=== PATIENT | female | born 1965 | race Caucasian/White ===

== ENCOUNTER 2021-04-13 12:58 | Emergency (ER) | payer BC, OTHER ==
--- NOTE | 2021-04-13 14:39 | CT ---
Abdomen Pelvis wo Cont CLINICAL HISTORY: Abdominal pain, spasms, constipation COMPARISON: None. TECHNIQUE: Axial tomographic images are obtained from the dome of the diaphragm to the pubic symphysis without IV contrast enhancement. No oral contrast was used. The dosage reduction and iterative reconstruction techniques employed. FINDINGS: The lung bases are free of infiltrate. There are some streaky scarring and/or atelectasis in both bases.. The liver is free of mass or biliary dilatation. The gallbladder has a normal appearance. The spleen has normal size and shape. The pancreas is free of mass or inflammatory change. There is an IVC filter in place at the level of the renal veins. The adrenal glands appear normal bilaterally. The kidneys show no stones or hydronephrosis. The ureters have a normal course and caliber. The bladder has a normal contour. Uterus has a normal contour. No adnexal masses are seen. There is some motion artifact in the lower pelvic scans The aorta has a normal course and caliber. There is no suspicious retroperitoneal adenopathy. Abdominal pelvic fat planes and low pelvic side spicer are well demarcated. Small intestinal configuration is nonacute. There is moderate retained stool throughout a very redundant colon.. The appendix has normal contour There is been previous thoracolumbar fixation. There compression fractures at T9 and T11 IMPRESSION: Moderate retained stool and a very redundant: Nonacute intestinal gas pattern IVC filter in place
--- NOTE | 2021-04-13 14:58 | EDM.PDOC ---
ED HPI GENERAL MEDICAL PROBLEM - General Chief Complaint: Gastrointestinal Problem Stated Complaint: BOWEL ISSUE/NERVE LOSS Time Seen by Provider: 04/13/21 13:40 Source of Information: Reports: Patient, Family History Limitations: Reports: No Limitations - History of Present Illness INITIAL COMMENTS - FREE TEXT/NARRATIVE: 56-year-old female who sustained a serious back injury 3 months ago, has now partial paralysis of the lower extremities from the waist down. She claims she has not had a bowel movement for 10 days, her is attempting to decompact her digitally, he is already cathing her bladder on a regular basis. She has been taking MiraLAX and Dulcolax without significant results, has decreased her baclofen from 3 doses to 2 doses concerned that it might be causing constipation. No fevers or chills. Onset: Gradual Duration: Day(s): (10 days) Location: Reports: Abdomen (Some increased spasms of her bowel over the past several days) Associated Symptoms: Denies: Fever/Chills, Headaches, Loss of Appetite, Nausea/Vomiting, Shortness of Breath, Weakness Lower Abdomen Pain Score (Numeric/FACES): 8 - Related Data Allergies Allergy/AdvReac Type Severity Reaction Status Date / Time No Known Allergies Allergy Verified 04/13/21 13:33 Home Meds: Home Meds Apixaban [Eliquis] 5 mg PO BID 04/13/21 [History] Baclofen 10 mg PO BID 04/13/21 [History] Pregabalin [Lyrica] 100 mg PO TID 04/13/21 [History] Past Medical History Musculoskeletal History: Reports: Other (See Below) Other Musculoskeletal History: Broken back with rods. Metal plate in neck. Neurological History: Reports: Other (See Below) Other Neuro History: paraplegic Social & Family History - Tobacco Use Tobacco Use Status *Q: Never Tobacco User - Caffeine Use Caffeine Use: Reports: Coffee - Recreational Drug Use Recreational Drug Use: No ED ROS GENERAL - Review of Systems Review Of Systems: See Below Constitutional: Denies: Fever, Chills, Malaise HEENT: Denies: Vision Change Respiratory: Denies: Shortness of Breath Cardiovascular: Denies: Chest Pain GI/Abdominal: Reports: Abdominal Pain, Constipation. Denies: Nausea, Vomiting : Reports: Other ( provides a straight catheter to the bladder on a regular basis) Skin: Reports: No Symptoms Neurological: Reports: Other (Lower extremity weakness and partial paralysis is stable) Psychiatric: Reports: No Symptoms ED EXAM, GI/ABD - Physical Exam Exam: See Below Exam Limited By: No Limitations General Appearance: Alert, No Apparent Distress Eyes: Bilateral: Normal Appearance Head: Atraumatic Respiratory/Chest: No Respiratory Distress, Lungs Clear Cardiovascular: Regular Rate, Rhythm GI/Abdominal Exam: Soft, Tender (Mild tenderness to palpation across the lower abdomen but no focal pain. Bowel sounds are normal.) Rectal (Female) Exam: Normal Exam (Rectal exam is completely empty, there is no inflammation of the perirectal area, no masses) Extremities: No: Pedal Edema Neurological: Alert, Oriented Psychiatric: Normal Affect, Normal Mood Skin Exam: Warm, Dry Course - Vital Signs Last Recorded V/S: Last Vital Signs Temp 97.6 F 04/13/21 13:28 Pulse 81 04/13/21 13:28 Resp 18 04/13/21 13:28 BP 126/72 04/13/21 13:28 Pulse Ox 96 04/13/21 13:28 - Re-Assessments/Exams Free Text/Narrative Re-Assessment/Exam: 04/13/21 17:[address] of the abdomen and pelvis was done without contrast to assess the amount of constipation, to rule out obstruction or volvulus. She has a very redundant colon but no sign of obstruction. She actually has only moderate diffuse stool present. She was offered an enema but I do think if she just continues the course her bowels will move fairly soon. Departure - Departure Time of Disposition: 15:04 Disposition: Home, Self-Care 01 Clinical Impression: Constipation by delayed colonic transit - Discharge Information Instructions: Constipation, Adult Referrals: Vlad Mack MD [Primary Care Provider] - Forms: ED Department Discharge Care Plan Goals: Continue with MiraLAX, Dulcolax, and drink plenty of water. Return to your regular dose of medications, and return if worsening over the next several days. Sepsis Event Note (ED) - Evaluation Sepsis Screening Result: No Definite Risk - Focused Exam Vital Signs: Vital Signs Temp Pulse Resp BP Pulse Ox 04/13/21 13:28 97.6 F 81 18 126/72 96 04/13/21 13:26 97.6 F 81 18 126/72 96
== END 2021-04-13 15:10 | disposition home or self-care (01) ==
LOC: JP.ED 12:58
DX: K59.01 Slow transit constipation (principal); Z79.01 Long term (current) use of anticoagulants
CPT/HCPCS: 74176; 74176-26; 99283-25

== ENCOUNTER 2021-05-08 12:24 | Emergency (ER) | payer OTHER ==
--- NOTE | 2021-05-08 12:31 | EDM.PDOC ---
ED HPI GENERAL MEDICAL PROBLEM - General Stated Complaint: possible uti Time Seen by Provider: 05/08/21 13:20 Source of Information: Reports: Patient, Family ( (home caregiver)), RN History Limitations: Reports: No Limitations - History of Present Illness INITIAL COMMENTS - FREE TEXT/NARRATIVE: Migue is a 56 year old female whom uses a wheelchair for mobility presents with concerns regarding possible UTI. Patient requested Urine Catheter sample with Urine Culture which is ordered while patient is in triage waiting area to assist with ER evaluation and treatment. Migue has a cage around her T10 and rods in lower back resulting in paraplegia bilateral lower legs, 3 months ago. Migue has had increased difficulty sleeping over the last 2-3 days due to increased bilateral lower leg spasms and back spasms which are painful. Migue has been working with [facility] with pain and muscle spasms, recent change in medications from Lyrica to gabapentin. Patient is on Baclofen with minimal improvement. Migue is not sleeping well therefore not managing pain or current life situation. Migue is tearful regarding situation and inability to have legs shaved. is very supportive with routine straight catheterizations, assisting with bowel program with recent constipation (no BM x 10 days) then added Miralax to routine resulting in 2 stooling accidents, one at Physical Therapy appointments. Migue reports strong odor to urine and increased in leg spasms which increases her concern for UTI. Migue denies fever, chills sweats, cough or URI symptoms. Chairmonet report decreased appetite, which she thought was due to life stressors but now may be due to infection. - Related Data Allergies Allergy/AdvReac Type Severity Reaction Status Date / Time No Known Allergies Allergy Verified 05/08/21 13:52 Home Meds: Home Meds Apixaban [Eliquis] 5 mg PO BID 04/13/21 [History] Baclofen 10 mg PO BID 04/13/21 [History] Pregabalin [Lyrica] 100 mg PO TID 04/13/21 [History] Amoxicillin/Potassium Clav [Augmentin 875-125 Tablet] 1 each PO BID 10 Days #20 tablet 05/08/21 [Rx] Gabapentin [Neurontin] 300 mg PO TID 05/08/21 [History] methocarbamoL [Methocarbamol] 500 - 1,000 mg PO TID 10 Days #30 tablet 05/08/21 [Rx] Past Medical History Musculoskeletal History: Reports: Other (See Below) Other Musculoskeletal History: Broken back with rods. Metal plate in neck. Neurological History: Reports: Other (See Below) Other Neuro History: paraplegic Social & Family History - Caffeine Use Caffeine Use: Reports: Coffee ED ROS GENERAL - Review of Systems Review Of Systems: Comprehensive ROS is negative, except as noted in HPI. ED EXAM, RENAL/ - Physical Exam Exam: See Below Exam Limited By: Physical Impairment (Parapelgic) General Appearance: Alert, WD/WN, Moderate Distress (muscle spasms (intermittent) obviously painful. ) Eye Exam: Bilateral Eye: Normal Inspection Ears: Hearing Grossly Normal Nose: Normal Inspection Throat/Mouth: Normal Inspection, Normal Voice, No Airway Compromise Neck: Normal Inspection, Full Range of Motion Respiratory/Chest: No Respiratory Distress, Lungs Clear, Normal Breath Sounds Cardiovascular: Normal Peripheral Pulses, Regular Rate, Rhythm GI/Abdominal: Other (increased sensitity skin lower abdomen since back injury/surgeries. ) (Female) Exam: Normal External Exam. No: Vaginal Lesions Rectal (Female) Exam: Deferred Back Exam: Muscle Spasm Extremities: Normal Range of Motion (bilateral arms ), Limited Range of Motion (and use of bilateral lower legs) Neurological: Alert, Oriented, CN II-XII Intact, Normal Cognition, Abnormal Gait , Sensory/Motor Deficit. No: Normal Reflexes, Abnormal Reflexes Psychiatric: Anxious, Tearful Skin Exam: Warm, Dry, Intact, Normal Color Course - Vital Signs Last Recorded V/S: Last Vital Signs Temp 36.4 C 05/08/21 13:51 Pulse 79 05/08/21 13:51 Resp 16 05/08/21 13:51 BP 148/68 H 05/08/21 13:51 Pulse Ox 98 05/08/21 13:51 - Orders/Labs/Meds Orders: Active Orders 24 hr Category Date Time Status CULTURE URINE [RM] Stat Lab 05/08/21 13:32 Received Labs: Laboratory Tests 05/08/21 05/08/21 05/08/21 Range/Units 13:31 13:51 13:51 WBC 7.0 (4.5-11.0) K/uL RBC 4.94 (3.30-5.50) M/uL Hgb 13.6 (12.0-15.0) g/dL Hct 42.1 (36.0-48.0) % MCV 85 (80-98) fL MCH 28 (27-31) pg MCHC 32 (32-36) % Plt Count 257 (150-400) K/uL Neut % (Auto) 71.1 H (36-66) % Lymph % (Auto) 21.4 L (24-44) % [place] % (Auto) 6.8 H (2-6) % Eos % (Auto) 0.4 L (2-4) % Baso % (Auto) 0.3 (0-1) % Sodium 142 (140-148) mmol/L Potassium 4.3 (3.6-5.2) mmol/L Chloride 105 (100-108) mmol/L Carbon Dioxide 27 (21-32) mmol/L Anion Gap 9.6 (5.0-14.0) mmol/L BUN 13 (7-18) mg/dL Creatinine 0.9 (0.6-1.0) mg/dL Est Cr Clr Drug Dosing 69.57 mL/min Estimated GFR (MDRD) > 60 (>60) Glucose 93 (74-106) mg/dL Calcium 8.9 (8.5-10.1) mg/dL Magnesium 2.0 (1.8-2.4) mg/dL Total Bilirubin 0.2 (0.2-1.0) mg/dL AST 15 (15-37) U/L ALT 23 (12-78) U/L Alkaline Phosphatase 104 (46-116) U/L Total Protein 6.3 L (6.4-8.2) g/dL Albumin 3.1 L (3.4-5.0) g/dL Globulin 3.2 (2.3-3.5) g/dL Albumin/Globulin Ratio 1.0 L (1.2-2.2) Urine Color Yellow (YELLOW) Urine Appearance Cloudy A (CLEAR) Urine pH 7.0 (5.0-8.0) Ur Specific [place] 1.020 (1.008-1.030) Urine Protein Negative (NEGATIVE) mg/dL Urine Glucose (UA) Negative (NEGATIVE) mg/dL Urine Ketones Negative (NEGATIVE) mg/dL Urine Occult Blood Small H (NEGATIVE) Urine Nitrite Positive H (NEGATIVE) Urine Bilirubin Negative (NEGATIVE) Urine Urobilinogen 0.2 (0.2-1.0) EU/dL Ur Leukocyte Esterase Moderate H (NEGATIVE) Urine RBC 10-20 H (0-5) Urine WBC 50-75 H (0-5) Ur Epithelial Cells Rare Amorphous Sediment Not seen Urine Bacteria Many Urine Mucus Not seen Meds: Medications Discontinued Medications Generic Name Dose Route Start Last Admin Trade Name Freq PRN Reason Stop Dose Admin Amoxicillin/Clavulanate Potassium 1 tab 05/08/21 15:07 Amoxicillin/Clavulanate K 875-125 Mg Tab PO 05/08/21 15:08 ONETIME ONE Ceftriaxone Sodium 2 gm/ 0 gm 05/08/21 14:30 05/08/21 14:39 Lidocaine HCl 4.2 ml IM 05/08/21 14:31 2 inj ONETIME ONE Administration Methocarbamol 1,000 mg 05/08/21 13:43 05/08/21 13:54 Methocarbamol 500 Mg Tab PO 05/08/21 13:44 1,000 mg ONETIME ONE Administration Ondansetron HCl 4 mg 05/08/21 13:43 05/08/21 13:55 Ondansetron 4 Mg Tab.Dis PO 05/08/21 13:44 4 mg ONETIME ONE Administration - Re-Assessments/Exams Free Text/Narrative Re-Assessment/Exam: Updated regarding WBC with shift in differential concerning for bacterial infection. UA shows significant UTI concerns. UC orders and pending. Rocephin 2GM IM given for UTI infection to prevent progression over the next 24hours. LFTs WNL, Renal Function WNL and Electrolytes are normal. Recommended additional as needed medication for muscle spasms as needed at night (methocarbamol/Robaxin) as needed for painful muscle cramps. If restless legs due to improve with progressive gabapentin dosing (second generation gabapentin) approved for restless legs may be considered. Local pharmacy was called regarding previous Antibiotic for UTI noting Bactrim given in the last 6-12 months. Opted for treatment with cephalosporin vs Augmentin at this time due to h/o floxacin resistance to Ecoli. Discussed risk of urinary bladder colonization with routine catheterizations and treatment is not aways indicated if urine is strong smelling. Treatment based on symptoms in the future. Migue has symptoms to support treatment for UTI today. Migue reports up to 3 UTIs in the last 6 months, to be reviewed by PCP to consider low dose antibiotic for prevention of UTI in the future. 05/08/21 14:45 Up to Date and discussion with ER MD regarding antibiotic choice due to resistance and Augmentin was recommended. 05/08/21 15:0 Departure - Departure Time of Disposition: 15:16 Disposition: Home, Self-Care 01 Clinical Impression: UTI, Urinary tract infectious disease, Complicated urinary tract infection, Paraplegia, Intractable muscle spasm - Discharge Information Prescriptions: Amoxicillin/Potassium Clav [Augmentin 875-125 Tablet] 1 each PO BID 10 Days #20 tablet methocarbamoL [Methocarbamol] 500 - 1,000 mg PO TID 10 Days #30 tablet Instructions: Urinary Tract Infection, Adult, Clean Intermittent Catheterization, Female Referrals: Chong Calle MD [Primary Care Provider] - Forms: ED Department Discharge Additional Instructions: 1. Increase fluid intake. 2. Continue current medications as prescribed. 3. Augmentin 875mg every am and pm x 10 days for complicated UTI. 4. Methocarbamol (Robaxin) 500-1000mg every 8 hrs as needed for painful muscle spasms. PCP may consider continuing depending on response. Alternative treatment for restless legs to be considered. Quinine (tonic water) Second generation Gabapentin. 4. UC ordered and pending at time of Er visit to be reviewed with PCP to ensure appropriate antibiotic treatment chosen with increase risk fo resistance organism. 5. May consider UTI antibiotic for prevention of infection if repetitive infections concerns. 6. Contact PCP and Spine Injury clinician regarding continued work to manage spasms and pain in addition to improved support for activates of daily living, bowel program and in home assistance. Sepsis Event Note (ED) - Focused Exam Vital Signs: Vital Signs Temp Pulse Resp BP Pulse Ox 05/08/21 13:51 36.4 C 79 16 148/68 H 98 05/08/21 13:20 36.4 C 79 16 148/68 H 98 - My Orders Last 24 Hours: My Active Orders 05/08/21 13:32 CULTURE URINE [RM] Stat - Assessment/Plan Last 24 Hours: My Active Orders 05/08/21 13:32 CULTURE URINE [RM] Stat
[2021-05-08] MEDS ORDERED: Methocarbamol 500 MG Tab PO ONE (13:43)
[2021-05-08] MEDS ORDERED: Ondansetron 4 MG Tab.DIS PO ONE (13:43)
[2021-05-08] MEDS ORDERED: cefTRIAXone 2 GM, Lidocaine 1% 4.2 ML IM ONE ×4 (14:10→14:30)
[2021-05-08] MEDS ORDERED: Amoxicillin/Clavulanate K 875-125 MG Tab PO ONE (15:07)
== END 2021-05-08 15:37 | disposition home or self-care (01) ==
LOC: JP.ED 12:24
DX: N39.0 Urinary tract infection, site not specified (principal); G82.20 Paraplegia, unspecified; M62.838 Other muscle spasm; M62.830 Muscle spasm of back; Z79.01 Long term (current) use of anticoagulants
CPT/HCPCS: 36415; 80053; 81001; 83735; 85025; 87086; 87088; 87186; 96372; 99284; A9270; J0696

== ENCOUNTER 2023-05-13 16:04 | Emergency (ER) | payer MEDICAID ==
[2023-05-13 17:21] LABS: APPEARANCE,URINE TURBID (CLEAR); BILIRUBIN,URINE NEGATIVE (NEGATIVE); COLOR,URINE YELLOW (YELLOW); GLUCOSE,URINE NEGATIVE (NEGATIVE); KETONES,URINE NEGATIVE (NEGATIVE); LEUKOCYTE ESTERASE,URINE MODERATE (NEGATIVE); NITRITE,URINE POSITIVE (NEGATIVE); OCCULT BLOOD,URINE TRACE-INTACT (NEGATIVE); PH,URINE 7.5 (5.0-8.0); PROTEIN,URINE 30 mg/dL (NEGATIVE)
[2023-05-13 17:26] LABS: AMORPHOUS SEDIMENT,URINE MODERATE; BACTERIA,URINE MANY; EPITHELIAL CELLS,URINE FEW; MUCUS,URINE NOT SEEN; RBC,URINE 0-5 (0-5); WBC,URINE PACKED (0-5)
[2023-05-13] MEDS ORDERED: Sulfamethoxazole/Trimethoprim 200-40 MG/5 ML Susp 20 ML Cup PO ONE (17:26)
== END 2023-05-13 17:45 | disposition home or self-care (01) ==
LOC: JP.ED 16:04
DX: N39.0 Urinary tract infection, site not specified (principal); R33.9 Retention of urine, unspecified
CPT/HCPCS: 81001; 87086; 87088; 87186; 99283

== ENCOUNTER 2024-04-30 14:47 | Emergency (ER) | payer MEDICARE, BC ==
[2024-04-30] MEDS ORDERED: Naloxone 0.4 MG/ML SDV IVPUSH PRN (15:47)
[2024-04-30 15:58] LABS: BASE EXCESS VENOUS 0.4 mm/L; BASOPHILS PERCENT AUTO 0.2 % (0.1-1.3); BICARBONATE,VENOUS 25.1 mmol/L; EOSINOPHILS PERCENT AUTO 0.2 % (0.0-5.4); HEMATOCRIT 42.4 % (34.3-46.0); HEMOGLOBIN 14.5 g/dL (11.2-15.5); IMMATURE GRAN PERCENT AUTO 0.3 % (0.0-0.7); LYMPHOCYTES ABSOLUTE AUTO 0.92 K/uL (0.8-3.3); LYMPHOCYTES PERCENT AUTO 15.5 % (11.4-47.7); MEAN CORPUSCULAR HEMOGLOBIN 30.7 pg (31.6-35.5); MEAN CORPUSCULAR HGB CONC 34.2 g/dL (31.6-35.5); MEAN CORPUSCULAR VOLUME 89.8 fL (81.4-99.0); METHEMOGLOBIN 0.8 %; MONOCYTES ABSOLUTE AUTO 0.25 K/uL (0.20-0.90); MONOCYTES PERCENT AUTO 4.2 % (3.3-12.6); NEUTROPHILS ABSOLUTE AUTO 4.72 K/uL (1.0-7.6); NEUTROPHILS PERCENT AUTO 79.6 % (40.0-78.1); O2 SATURATION VENOUS 51.8; OXYHEMOGLOBIN 50.3 %; PCO2 VENOUS 42.8 mm/Hg; PH,VENOUS 7.386 (7.350-7.450); PLATELET COUNT,PLT 194 K/uL (130-375); RED BLOOD CELL COUNT 4.72 M/uL (3.77-5.24); TOTAL HEMOGLOBIN 15.2 g/dL (12.0-16.0); WHITE BLOOD CELL COUNT,WBC 5.9 K/uL (3.2-11.0)
[2024-04-30 15:59] LABS: PO2 VENOUS 29.3 mm/Hg
[2024-04-30] MEDS: Prochlorperazine 10 MG/2 ML SDV IVPUSH ONE (15:59)
[2024-04-30] MEDS: Sodium Chloride 0.9% 1,000 ML IV ONE (15:59)
[2024-04-30 16:00] LABS: BASOPHILS ABSOLUTE AUTO 0.01 K/uL (0.00-0.10); EOSINOPHILS ABSOLUTE AUTO 0.01 K/uL (0.00-0.40); IMMATURE GRAN ABSOLUTE AUTO 0.02 K/uL (0.00-0.23)
[2024-04-30 16:19] LABS: A/G RATIO 1.2 (1.2-2.2); ALANINE AMINOTRANSFERASE,ALT 32 U/L (12-78); ALBUMIN 3.7 g/dL (3.4-5.0); ALKALINE PHOSPHATASE 83 U/L (46-116); ANION GAP 10.7 mmol/L (5.0-14.0); ASPARTATE AMNIOTRANSFERASE,AST 21 U/L (15-37); BILIRUBIN TOTAL 0.5 mg/dL (0.2-1.0); BLOOD UREA NITROGEN,BUN 22 mg/dL (7-18); CALCIUM 8.9 mg/dL (8.5-10.1); CARBON DIOXIDE,CO2 24 mmol/L (21-32); CHLORIDE,CL 105 mmol/L (100-108); CREATININE 0.8 mg/dL (0.6-1.0); EST CRCL DRUG DOSING (CG) 72.72 mL/min; ESTIMATED GFR 84 mL/min (>60); GLUCOSE RANDOM 105 mg/dL (74-106); POTASSIUM,K 4.9 mmol/L (3.6-5.2); PROTEIN TOTAL,TP 6.8 g/dL (6.4-8.2); SODIUM,NA 140 mmol/L (140-148)
[2024-04-30 16:24] LABS: APPEARANCE,URINE SLIGHTLY CLOUDY (CLEAR); BILIRUBIN,URINE SMALL (NEGATIVE); COLOR,URINE YELLOW (YELLOW); GLUCOSE,URINE NEGATIVE (NEGATIVE); KETONES,URINE >=160 mg/dL (NEGATIVE); LEUKOCYTE ESTERASE,URINE NEGATIVE (NEGATIVE); NITRITE,URINE NEGATIVE (NEGATIVE); OCCULT BLOOD,URINE MODERATE (NEGATIVE); PH,URINE 5.5 (5.0-8.0); PROTEIN,URINE 30 mg/dL (NEGATIVE); UROBILINOGEN,URINE 0.2 EU/dL (0.2-1.0)
[2024-04-30] MEDS: HYDROmorphone 0.5 MG/0.5 ML Syringe IVPUSH PRN (16:29)
[2024-04-30 16:41] LABS: AMORPHOUS SEDIMENT,URINE FEW; BACTERIA,URINE MANY; EPITHELIAL CELLS,URINE RARE; MUCUS,URINE MODERATE; RBC,URINE 0-5 (0-5)
[2024-04-30] MEDS: traMADol 50 MG Tab PO ONE (16:46)
[2024-04-30] MEDS: Pregabalin 50 MG Cap PO ONE (16:47)
[2024-04-30 16:48] LABS: CORONAVIRUS COVID-19 NAA NEGATIVE (NEGATIVE); INFLUENZA A NAA NEGATIVE (NEGATIVE); INFLUENZA B NAA NEGATIVE (NEGATIVE); RESPIRATORY SYNCYTIAL VIR NAA NEGATIVE (NEGATIVE)
[2024-04-30] MEDS: Sodium Chloride 0.9% 80 ML IV ONE (17:04)
[2024-04-30] MEDS: Sodium Chloride 0.9% 10 ML Syringe FLUSH PRN (17:04)
[2024-04-30] MEDS: Iopamidol 612 MG/ML 100 ML Bottle IV PRN (17:04)
== END 2024-04-30 18:54 | disposition home or self-care (01) ==
LOC: JP.ED 14:47
DX: R11.2 Nausea with vomiting, unspecified (principal); Z98.1 Arthrodesis status; Z79.899 Other long term (current) drug therapy
CPT/HCPCS: 0241U; 36415; 74177; 74177-26; 80053; 81001; 82803; 83605; 83690; 84145; 85025; 96361; 96374; 96375; 99283; 99284-25; A9270-GY; J0780; J1170; J3490; J7030; Q9967

== ENCOUNTER 2024-10-28 19:13 | Emergency (ER) | payer MEDICARE, BC | END 2024-10-28 20:35 | disposition home or self-care (01) | LOC: JP.ED 19:13 | DX: T83.090A Other mechanical complication of cystostomy catheter, initial encounter (principal); N39.0 Urinary tract infection, site not specified; Z79.899 Other long term (current) drug therapy; Y73.2 Prosthetic and other implants, materials and accessory gastroenterology and urology devices associated with adverse incidents | CPT/HCPCS: 99283 ==